=== PATIENT | male | born 1935 | race Caucasian/White ===

== ENCOUNTER 2021-02-28 19:41 | Observation (INO) | payer MEDICARE ==
[2021-02-28 23:35] VITALS: BMI 23.6
[2021-03-01] MEDS ORDERED: Ondansetron PF 4 MG/2 ML Vial IVP PRN (04:28)
[2021-03-01] MEDS ORDERED: Acetaminophen 650 MG Suppository PR PRN (04:28)
[2021-03-01] MEDS ORDERED: Acetaminophen 325 MG TAB PO PRN (04:28)
[2021-03-01] MEDS ORDERED: Ondansetron ODT 4 MG TAB PO PRN (04:28)
[2021-03-01] MEDS ORDERED: Dextrose 50% Abboject 50 ML SYRINGE SLOW IVP PRN (04:57)
[2021-03-01] MEDS ORDERED: HumaLOG 300 UNITS/3 ML VIAL SC PRN ×2 (04:57)
[2021-03-01] MEDS ORDERED: Dextrose 5% in Water 1,000 ML IV PRN (04:57)
[2021-03-01] MEDS ORDERED: Aspirin 325 MG TAB PO SCH (05:15)
[2021-03-01] MEDS ORDERED: Aspirin 81 mg Enteric Coated Tablet PO SCH (09:00)
[2021-03-01] MEDS: Enoxaparin Sodium 40 MG/0.4 ML SYRINGE SC SCH (10:30)
[2021-03-02 05:22] LABS: Band 1 % (5-11); Hemoglobin 13.1 g/dL (14.0-18.0); Lymphocytes 17 % (21-51); MDiff Complete? YES; Mean Corpuscular HGB CONC 33.6 g/dL (32.0-36.0); Mean Corpuscular Volume 95.1 fL (78.0-98.0); Mean Platelet Volume 9.4 fL (7.4-10.4); Monocytes 20 % (0-10); Neutrophil 57 % (42-75); Platelet Count 164 thou/uL (130-400); Platelet Morphology Comment Appears Adequate; RBC Distribution Width 12.6 % (11.5-14.5); Reactive Lymphocytes 5 % (0-10); Red Blood Cell (RBC) Count 4.09 mill/uL (4.70-6.10); White Blood Cell (WBC) Count 6.1 thou/uL (4.8-10.8)
[2021-03-02 05:30] LABS: Anion Gap 8 mmol/L (10-20); BUN (Urea Nitrogen) 22 mg/dL (8.4-25.7); Calc. Creatinine Clearance 59 mL/min (70-130); Calcium 8.8 mg/dL (7.8-10.44); Carbon Dioxide 26 mmol/L (23-31); Cardiac Risk 5.5 (Less than 4.5); Chloride 108 mmol/L (98-107); Cholesterol 160 mg/dl (< 200 Desired); Glucose 94 mg/dL (83-110); HDL Cholesterol 29 mg/dL (>60 Neg Risk); LDL Cholesterol, Calculated 110 mg/dL; Sodium 138 mmol/L (136-145); Triglycerides 107 mg/dL (Less than 150)
[2021-03-02] MEDS ORDERED: Aspirin 81 mg Enteric Coated Tablet PO SCH (09:00)
[2021-03-02] MEDS: Enoxaparin Sodium 40 MG/0.4 ML SYRINGE SC SCH (10:44)
[2021-03-02 12:15] VITALS: BP 127/63; TEMP 98.7
== END 2021-03-02 12:56 | disposition home or self-care (01) ==
LOC: 3SE 19:41
PROVIDERS: ADMIT Student in an Organized Health Care Education/Training Program; ATTEND Internal Medicine
DX: G45.9 Transient cerebral ischemic attack, unspecified (principal); I10 Essential (primary) hypertension; E78.5 Hyperlipidemia, unspecified; I08.2 Rheumatic disorders of both aortic and tricuspid valves; M10.9 Gout, unspecified; E11.9 Type 2 diabetes mellitus without complications; Z20.822 Contact with and (suspected) exposure to COVID-19; Z79.84 Long term (current) use of oral hypoglycemic drugs; Z79.899 Other long term (current) drug therapy
CPT/HCPCS: 70551; 80048; 80061; 82962 ×2; 85025; 93306; 93880; 96372; 97116; 97139 ×3; 97530; G0378 ×2; 36415; 36416; J1650